=== PATIENT | female | born 1940 | race Caucasian/White ===

== ENCOUNTER 2016-12-25 06:38 | Day surgery (SDC) | payer MEDICARE, BC ==
[2016-12-22 15:49] VITALS: BMI 30.3
[~2016-12-25 06:38] MED LIST: LACTATED RINGERS 1,000 ML IV SCH
[2016-12-25 07:16] VITALS: TEMP 96.9
[2016-12-25] MEDS ORDERED: LACTATED RINGERS 1,000 ML IV ONE (07:23)
[2016-12-25 07:26] LABS: Glucose,Whole Blood 152 mg/dL (75-99)
[2016-12-25] MEDS ORDERED: LEVALBUTEROL NEB 1.25 MG/3 ML AMP INHALATION STA (07:38)
[2016-12-25] MEDS ORDERED: PROPOFOL 10 MG/ML 20 ML VIAL IV ONE (08:17)
--- NOTE | 2016-12-25 08:47 | P.PCN ---
Date of Procedure: 12/25/16 Procedure(s) Performed: Brief history: Patient is a pleasant 76-year-old white female, scheduled for an elective upper endoscopy as well as colonoscopy as a part of evaluation of iron deficiency anemia. She also complains of intermittent diarrhea and fecal incontinence. Procedure performed: Esophagogastroduodenoscopy with biopsy Colonoscopy with snare polypectomy Preoperative diagnosis: Iron deficiency anemia and change in bowel habits Anesthesia: MAC Procedure: After informed consent was obtained from the patient was brought into the endoscopy unit and IV sedation was administered by anesthesia under continuous monitoring. Initially upper endoscopy was done. The Olympus GF 160 video endoscope was inserted inserted into the mouth and esophagus intubated without any difficulty and was gradually advanced into the stomach and duodenum and carefully examined. The bulb and second part of the duodenum appeared normal. The scope was then withdrawn into the stomach adequately insufflated with air and upon careful examination the antrum and body, had diffuse gastritis with superficial linear erosions and biopsies were done from this area. The cardia and fundus appeared normal. The scope was then withdrawn into the esophagus. The GE junction was located at 40 cm to the incisors. It appeared regular with no erythema erosions or ulcerations. Rest of the esophagus appeared normal. Patient tolerated the procedure well. At this time the patient continued to remain sedation. Initial digital rectal examination was normal. Olympus CF 160 video colonoscope was then inserted into the rectum and gradually advanced to the cecum without any difficulty. Careful examination was performed as the scope was gradually being withdrawn. The prep was excellent. The cecum appeared normal. In the ascending colon there was a 5 mm, 1 cm and 2 cm polyps all of which were removed by snare polypectomy. The rest of the, ascending colon, transverse colon, descending colon, sigmoid colon and rectum appeared normal. Moderate diverticulosis seen. Retroflexion was performed in the rectum and no lesions were noted. Patient tolerated the procedure well. Impression: 1. Upper endoscopy revealed gastritis and superficial erosions in the body and antrum of the stomach status post biopsy 2. Colonoscopy revealed 5 mm, 1 cm and 2 cm ascending colon polyps status post polypectomy and sigmoid diverticulosis. Recommendations: Findings of this examination were discussed with the patient as well as her family. She was advised to follow with the biopsy results. If the biopsy shows a tubular adenoma she can have a repeat colonoscopy in 3 years. She can start on iron supplements and she was also given a prescription for Prilosec 20 mg daily and was advised to avoid NSAIDs.
[2016-12-25 09:28] VITALS: BP 114/85; PULSE 85; RESP 18
--- NOTE | 2016-12-31 08:25 | CDI ---
In order to code the diagnosises on this account correctly, I need some clarification due to a conflict. Your Procedure Note states that there were polyps found and removed from the ascending colon. The Pathology Report does not have record of ascending polyps. 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 Can you please issue an addendum stating the actual location and pathology of the polyps? If you don't understand what is needed, please contact my Plant Health Care Technician , Kimberly Ortega at [phone]. Thanks! PATIENCE Patino
--- NOTE | 2017-01-04 09:52 | CDI ---
THIS IS REQUEST 2 AND REQUIRES AN ADDENDUM In order to code the diagnoses on this account correctly, I need some clarification due to a conflict. Your Procedure Note states that there were polyps found and removed from the ascending colon. The Pathology Report does not state ascending polyps. 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 Can you please issue an addendum stating the actual location and pathology of the polyps ? If you don't understand what is needed, please contact my Park Superintendent, Kimberly Ortega at [phone]. Thanks! PATIENCE Patino
--- NOTE | 2017-01-12 09:44 | CDI ---
THIS IS A 3RD REQUEST AND REQUIRES AN ADDENDUM In order to code the diagnoses on this account correctly, I need clarification due to a documentation conflict. Your Procedure Note states polyps were removed from the ascending colon. The Path Report reflects descending polyps with path of serrated adenoma and tubular adenoma. Can you please issue an addendum stating the actual location (descending or ascending) and path of those polyps? If you don't understand what is needed from you, please contact my deployment manager, Kimberly Ortega at [phone]. Thank you. PATIENCE Patino
--- NOTE | 2017-01-20 09:38 | CDI ---
In order to code the diagnosises on this account correctly, I need some clarification due to a documentation conflict. Your Procedure Note states polyps were removed from the ascending colon. 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 Can you please issue an addendum stating the actual location ( descending OR ascending) and pathology of the polyps? Please note if the path report is incorrect in stating descending. If you don't understand what is needed, please contact my Golf Club Manager, Kimberly Ortega at [phone]. Thanks! PATIENCE Patino
== END 2016-12-25 09:39 | disposition home or self-care (01) ==
LOC: ORWHC2ENDO 06:38
PROVIDERS: ATTEND Internal Medicine Gastroenterology
DX: K29.50 Unspecified chronic gastritis without bleeding (principal); K25.9 Gastric ulcer, unspecified as acute or chronic, without hemorrhage or perforation; D12.2 Benign neoplasm of ascending colon; K57.30 Diverticulosis of large intestine without perforation or abscess without bleeding; D50.9 Iron deficiency anemia, unspecified; R19.4 Change in bowel habit; K58.0 Irritable bowel syndrome with diarrhea; R15.9 Full incontinence of feces; I10 Essential (primary) hypertension; E78.5 Hyperlipidemia, unspecified; E11.9 Type 2 diabetes mellitus without complications; K21.9 Gastro-esophageal reflux disease without esophagitis; K58.9 Irritable bowel syndrome, unspecified; Z79.84 Long term (current) use of oral hypoglycemic drugs; Z79.82 Long term (current) use of aspirin; Z79.899 Other long term (current) drug therapy
CPT/HCPCS: 94640; 88305; 88342; 45385; 43239; J2704

== ENCOUNTER 2019-06-13 08:33 | Inpatient (IN) | payer MEDICARE, BC ==
[2019-06-13] MEDS ORDERED: SODIUM CHLORIDE 0.9% 500 ML 500 ML IV STA (09:01)
[2019-06-13] MEDS ORDERED: KETOROLAC 60 MG/2 ML VIAL IVP STA (09:04)
[2019-06-13 09:38] LABS: Basophils # (A) 0.1 k/uL (0-0.2); Basophils % (A) 0 %; Eosinophils # (A) 0.2 k/uL (0-0.7); Eosinophils % (A) 2 %; HCT 35.5 % (34.0-46.0); HGB 10.6 gm/dL (11.4-16.0); Hypochromasia Slight; Lymphocytes # (A) 2.2 k/uL (1.0-4.8); Lymphocytes % (A) 16 %; MCH 24.9 pg (25.0-35.0); MCHC 29.8 g/dL (31.0-37.0); MCV 83.7 fL (80.0-100.0); Mean Platelet Volume 7.3; Monocytes # (A) 0.8 k/uL (0-1.0); Monocytes % (A) 6 %; Neutrophils # (A) 10.1 k/uL (1.3-7.7); Neutrophils % (A) 74 %; Platelet Count 469 k/uL (150-450); RBC 4.24 m/uL (3.80-5.40); RDW 14.5 % (11.5-15.5); WBC 13.6 k/uL (3.8-10.6)
[2019-06-13 09:44] LABS: INR 0.9 (<1.2); Partial Thromboplastin Time 24.9 sec (22.0-30.0); Prothrombin Time 9.9 sec (9.0-12.0)
[2019-06-13 09:47] LABS: Albumin 4.2 g/dL (3.5-5.0); Calcium 8.7 mg/dL (8.4-10.2); Magnesium 1.5 mg/dL (1.6-2.3); Potassium 4.7 mmol/L (3.5-5.1); Total Bilirubin 0.3 mg/dL (0.2-1.3); Total Protein 6.8 g/dL (6.3-8.2)
--- NOTE | 2019-06-13 09:47 | ED ---
General Adult HPI - General Chief complaint: Fall Stated complaint: FALL Time Seen by Provider: 06/13/19 08:35 Source: patient, family, RN notes reviewed Mode of arrival: wheelchair Limitations: no limitations - History of Present Illness Initial comments: This is an 79-year-old female presents emergency department because she fell twice yesterday and has fallen 4 times in the last few days. Patient states she is here because she hurt her left lower back. Patient doesn't know which side she actually fell on. Patient states she has been told she has vertigo and that that may be the reason she is falling. Patient states she does not know why she has been falling recently. Patient denies any headache patient doesn't think she hit her head. Patient denies any neck pain. Patient denies any numbness weakness. Patient denies any recent fever chills per patient denies chest pain palpitations difficulty breathing shortness of breath. Any abdominal pain patient denies nausea vomiting diarrheapatient has full range of motion of all 4 extremities. - Related Data Home Medications Medication Instructions Recorded Confirmed Cinacalcet [Sensipar] 30 mg PO DAILY 06/13/19 06/13/19 Ciprofloxacin HCl [Cipro] 500 mg PO BID 06/13/19 06/13/19 Citalopram Hydrobromide 40 mg PO DAILY 06/13/19 06/13/19 [Citalopram HBr] Lisinopril 20 mg PO DAILY 06/13/19 06/13/19 Loperamide [Imodium] 2 mg PO PC-LUNCH 06/13/19 06/13/19 Loperamide [Imodium] 4 mg PO QAM 06/13/19 06/13/19 Memantine [Namenda] 10 mg PO DAILY 06/13/19 06/13/19 Montelukast [Singulair] 10 mg PO HS 06/13/19 06/13/19 Omeprazole [PriLOSEC] 20 mg PO DAILY 06/13/19 06/13/19 Oxybutynin Chloride [Oxybutynin 15 mg PO DAILY 06/13/19 06/13/19 Chloride ER] Simvastatin 40 mg PO HS 06/13/19 06/13/19 Zolpidem [Ambien] 10 mg PO HS 06/13/19 06/13/19 busPIRone HCL [Buspar] 7.5 mg PO TID 06/13/19 06/13/19 glipiZIDE [Glucotrol] 10 mg PO DAILY 06/13/19 06/13/19 metFORMIN HCL [Glucophage] 1,000 mg PO BID 06/13/19 06/13/19 Allergies Allergy/AdvReac Type Severity Reaction Status Date / Time No Known Allergies Allergy Verified 06/13/19 10:03 Review of Systems ROS Statement: Those systems with pertinent positive or pertinent negative responses have been documented in the HPI. ROS Other: All systems not noted in ROS Statement are negative. Past Medical History Past Medical History: COPD, Diabetes Mellitus, Hypertension Additional Past Medical History / Comment(s): IBS, ANEMIA History of Any Multi-Drug Resistant Organisms: None Reported Past Surgical History: Hysterectomy Past Anesthesia/Blood Transfusion Reactions: Unable to Obtain Additional Past Anesthesia/Blood Transfusion Reaction / Comment(s): SON UNSURE Smoking Status: Current every day smoker Past Alcohol Use History: None Reported Past Drug Use History: None Reported - Past Family History Mother Family Medical History: Unable to Obtain General Exam - General Exam Comments Initial Comments: GENERAL: Patient is well-developed and well-nourished. Patient is nontoxic and well- hydrated and is in moderate distress. ENT: Neck is soft and supple. No significant lymphadenopathy is noted. Oropharynx is clear. Moist mucous membranes. Neck has full range of motion without eliciting any pain. EYES: The sclera were anicteric and conjunctiva were pink and moist. Extraocular movements were intact and pupils were equal round and reactive to light. Eyelids were unremarkable. PULMONARY: Unlabored respirations. Good breath sounds bilaterally. No audible rales rhonchi or wheezing was noted. CARDIOVASCULAR: There is a regular rate and rhythm without any murmurs gallops or rubs. ABDOMEN: Soft and nontender with normal bowel sounds. SKIN: Skin is clear with no lesions or rashes and otherwise unremarkable. NEUROLOGIC: Patient is alert and oriented x3. Cranial nerves II through XII are grossly intact. Motor and sensory are also intact. Normal speech, volume and content. Symmetrical smile. MUSCULOSKELETAL: Normal extremities with adequate strength and full range of motion. Patient has left lower back pain. Patient has full range of motion of both hips and knees. LYMPHATICS: No significant lymphadenopathy is noted PSYCHIATRIC: Normal psychiatric evaluation. Limitations: no limitations Course Vital Signs 06/13/19 08:36 Temperature 98.8 F Pulse Rate 95 Respiratory 18 Rate Blood Pressure 120/56 O2 Sat by Pulse 97 Oximetry Medical Decision Making - Medical Decision Making EKG shows normal sinus rhythm at 93 bpm IA interval 170 QRS is 110 QT interval 390 QTC is 484. Patient's EKG shows no ST segment elevation or depression. CT of the brain shows no acute abnormality. Chest x-ray shows no acute abnormality. Patient was still unsteady on her feet so patient was admitted the hospital spoke with Dr. Goetz agreed to admit the patient admitted the patient wrote admitting orders. - Lab Data Result diagrams: 06/13/19 09:21 06/13/19 09:21 Lab Results 06/13/19 06/13/19 06/13/19 Range/Units 09:21 09:21 09:21 WBC 13.6 H (3.8-10.6) k/uL RBC 4.24 (3.80-5.40) m/uL Hgb 10.6 L (11.4-16.0) gm/dL Hct 35.5 (34.0-46.0) % MCV 83.7 (80.0-100.0) fL MCH 24.9 L (25.0-35.0) pg MCHC 29.8 L (31.0-37.0) g/dL RDW 14.5 (11.5-15.5) % Plt Count 469 H (150-450) k/uL Neutrophils % 74 % Lymphocytes % 16 % Monocytes % 6 % Eosinophils % 2 % Basophils % 0 % Neutrophils # 10.1 H (1.3-7.7) k/uL Lymphocytes # 2.2 (1.0-4.8) k/uL Monocytes # 0.8 (0-1.0) k/uL Eosinophils # 0.2 (0-0.7) k/uL Basophils # 0.1 (0-0.2) k/uL Hypochromasia Slight PT (9.0-12.0) sec INR (<1.2) APTT (22.0-30.0) sec Sodium 137 (137-145) mmol/L Potassium 4.7 (3.5-5.1) mmol/L Chloride 103 (98-107) mmol/L Carbon Dioxide 25 (22-30) mmol/L Anion Gap 9 mmol/L BUN 30 H (7-17) mg/dL Creatinine 1.06 H (0.52-1.04) mg/dL Est GFR (CKD-EPI)AfAm 58 (>60 ml/min/1.73 sqM) Est GFR (CKD-EPI)NonAf 50 (>60 ml/min/1.73 sqM) Glucose 193 H (74-99) mg/dL Lactic Ac Sepsis Rflx Plasma Lactic Acid [place] 2.1 H* (0.7-2.0) mmol/L Calcium 8.7 (8.4-10.2) mg/dL Magnesium 1.5 L (1.6-2.3) mg/dL Total Bilirubin 0.3 (0.2-1.3) mg/dL AST 16 (14-36) U/L ALT 14 (9-52) U/L Alkaline Phosphatase 114 (38-126) U/L Troponin I (0.000-0.034) ng/mL Total Protein 6.8 (6.3-8.2) g/dL Albumin 4.2 (3.5-5.0) g/dL Urine Color Urine Appearance (Clear) Urine pH (5.0-8.0) Ur Specific [place] (1.001-1.035) Urine Protein (Negative) Urine Glucose (UA) (Negative) Urine Ketones (Negative) Urine Blood (Negative) Urine Nitrite (Negative) Urine Bilirubin (Negative) Urine Urobilinogen (<2.0) mg/dL Ur Leukocyte Esterase (Negative) Urine RBC (0-5) /hpf Urine WBC (0-5) /hpf Hyaline Casts (0-2) /lpf Urine Mucus (None) /hpf 06/13/19 06/13/19 06/13/19 Range/Units 09:21 09:21 09:30 WBC (3.8-10.6) k/uL RBC (3.80-5.40) m/uL Hgb (11.4-16.0) gm/dL Hct (34.0-46.0) % MCV (80.0-100.0) fL MCH (25.0-35.0) pg MCHC (31.0-37.0) g/dL RDW (11.5-15.5) % Plt Count (150-450) k/uL Neutrophils % % Lymphocytes % % Monocytes % % Eosinophils % % Basophils % % Neutrophils # (1.3-7.7) k/uL Lymphocytes # (1.0-4.8) k/uL Monocytes # (0-1.0) k/uL Eosinophils # (0-0.7) k/uL Basophils # (0-0.2) k/uL Hypochromasia PT 9.9 (9.0-12.0) sec INR 0.9 (<1.2) APTT 24.9 (22.0-30.0) sec Sodium (137-145) mmol/L Potassium (3.5-5.1) mmol/L Chloride (98-107) mmol/L Carbon Dioxide (22-30) mmol/L Anion Gap mmol/L BUN (7-17) mg/dL Creatinine (0.52-1.04) mg/dL Est GFR (CKD-EPI)AfAm (>60 ml/min/1.73 sqM) Est GFR (CKD-EPI)NonAf (>60 ml/min/1.73 sqM) Glucose (74-99) mg/dL Lactic Ac Sepsis Rflx Plasma Lactic Acid [place] (0.7-2.0) mmol/L Calcium (8.4-10.2) mg/dL Magnesium (1.6-2.3) mg/dL Total Bilirubin (0.2-1.3) mg/dL AST (14-36) U/L ALT (9-52) U/L Alkaline Phosphatase (38-126) U/L Troponin I <0.012 (0.000-0.034) ng/mL Total Protein (6.3-8.2) g/dL Albumin (3.5-5.0) g/dL Urine Color Yellow Urine Appearance Clear (Clear) Urine pH 5.0 (5.0-8.0) Ur Specific [place] 1.022 (1.001-1.035) Urine Protein 1+ H (Negative) Urine Glucose (UA) 1+ H (Negative) Urine Ketones Negative (Negative) Urine Blood Trace H (Negative) Urine Nitrite Negative (Negative) Urine Bilirubin Negative (Negative) Urine Urobilinogen 2.0 (<2.0) mg/dL Ur Leukocyte Esterase Negative (Negative) Urine RBC 8 H (0-5) /hpf Urine WBC 2 (0-5) /hpf Hyaline Casts 13 H (0-2) /lpf Urine Mucus Occasional H (None) /hpf 06/13/19 Range/Units 10:01 WBC (3.8-10.6) k/uL RBC (3.80-5.40) m/uL Hgb (11.4-16.0) gm/dL Hct (34.0-46.0) % MCV (80.0-100.0) fL MCH (25.0-35.0) pg MCHC (31.0-37.0) g/dL RDW (11.5-15.5) % Plt Count (150-450) k/uL Neutrophils % % Lymphocytes % % Monocytes % % Eosinophils % % Basophils % % Neutrophils # (1.3-7.7) k/uL Lymphocytes # (1.0-4.8) k/uL Monocytes # (0-1.0) k/uL Eosinophils # (0-0.7) k/uL Basophils # (0-0.2) k/uL Hypochromasia PT (9.0-12.0) sec INR (<1.2) APTT (22.0-30.0) sec Sodium (137-145) mmol/L Potassium (3.5-5.1) mmol/L Chloride (98-107) mmol/L Carbon Dioxide (22-30) mmol/L Anion Gap mmol/L BUN (7-17) mg/dL Creatinine (0.52-1.04) mg/dL Est GFR (CKD-EPI)AfAm (>60 ml/min/1.73 sqM) Est GFR (CKD-EPI)NonAf (>60 ml/min/1.73 sqM) Glucose (74-99) mg/dL Lactic Ac Sepsis Rflx Y Plasma Lactic Acid [place] (0.7-2.0) mmol/L Calcium (8.4-10.2) mg/dL Magnesium (1.6-2.3) mg/dL Total Bilirubin (0.2-1.3) mg/dL AST (14-36) U/L ALT (9-52) U/L Alkaline Phosphatase (38-126) U/L Troponin I (0.000-0.034) ng/mL Total Protein (6.3-8.2) g/dL Albumin (3.5-5.0) g/dL Urine Color Urine Appearance (Clear) Urine pH (5.0-8.0) Ur Specific [place] (1.001-1.035) Urine Protein (Negative) Urine Glucose (UA) (Negative) Urine Ketones (Negative) Urine Blood (Negative) Urine Nitrite (Negative) Urine Bilirubin (Negative) Urine Urobilinogen (<2.0) mg/dL Ur Leukocyte Esterase (Negative) Urine RBC (0-5) /hpf Urine WBC (0-5) /hpf Hyaline Casts (0-2) /lpf Urine Mucus (None) /hpf Disposition Clinical Impression: Rib contusion, Multiple falls Disposition: ADMITTED IP TO THIS HOSP Referrals: Odalys Ordaz DO [Primary Care Provider] - 1-2 days Time of Disposition: 13:56
[2019-06-13 10:06] LABS: Appearance,Urine Clear (Clear); Bilirubin,Urine Negative (Negative); Blood,Urine Trace (Negative); Color,Urine Yellow; Glucose,Urine (UA) 1+ (Negative); Hyaline Casts,Urine 13 /lpf (0-2); Ketones,Urine Negative (Negative); Leukocyte Esterase,Urine Negative (Negative); Mucus,Urine Occasional /hpf; Nitrite,Urine Negative (Negative); Protein,Urine 1+ (Negative); RBC,Urine 8 /hpf (0-5); Specific Gravity,Urine 1.022 (1.001-1.035); WBC,Urine 2 /hpf (0-5)
--- NOTE | 2019-06-13 10:10 | XR ---
EXAMINATION TYPE: XR chest 2V DATE OF EXAM: 06/13/2019 COMPARISON: NONE HISTORY: Weakness, altered mental status, difficulty breathing TECHNIQUE: Frontal and lateral views of the chest are obtained. FINDINGS: There is increased AP diameter of the chest. Thoracic spondylosis is noted. Aorta is dense. Patient is rotated. There is no focal air space opacity, pleural effusion, or pneumothorax seen. Th e cardiac silhouette size is within normal limits. Possible coronary artery vascular calcifications. The osseous structures are intact. Arthropathy noted at the acromioclavicular joints. Question small sclerotic focal density within the proximal metaphysis of the right humerus, incompletely visualized . Possible overlying artifacts right shoulder. IMPRESSION: No acute cardiopulmonary process. Additional nonspecific findings described above.
--- NOTE | 2019-06-13 12:41 | CT ---
EXAMINATION TYPE: CT brain wo con DATE OF EXAM: 06/13/2019 COMPARISON: None HISTORY: 79-year-old female with fall and pain TECHNIQUE: Examination was done in axial plane without intravenous contrast. Coronal and sagittal r econstructions performed. CT DLP: 1099.4 mGycm Automated exposure control for dose reduction was used. FINDINGS: There is no evidence of acute intracranial hemorrhage, acute ischemic changes, mass effect, or extra -axial fluid collection. There is no effacement of cerebral sulci or basal subarachnoid cisterns. T here is no hydrocephalus. There is no midline shift. Mckenna-white matter distinction is preserved. Mild bifrontal atrophy. Calcified extra-axial lesion seen along the anterior falx measures 9 mm. Dyst rophic dural calcification right temporal parietal region. Mild patchy periventricular white matter hypodensity likely relating to changes of chronic small vess el ischemic disease. Visualized paranasal sinuses and mastoid air cells well pneumatized. Orbits and globes are intact. IMPRESSION: 1 Mild bifrontal atrophy and changes of chronic small vessel ischemic disease. No acute intracranial abnormality seen. 2. A 9 mm calcified extra-axial lesion along the anterior falx, likely benign meningioma. Consider 6- 12 month follow-up MRI to reassess.
[2019-06-13] MEDS ORDERED: SODIUM CHLORIDE 0.9% 1,000 ML IV ONE (13:59)
[2019-06-13 17:17] LABS: Glucose,Whole Blood 177 mg/dL (75-99)
[2019-06-13] MEDS: ACETAMINOPHEN TAB 325 MG TAB PO PRN ×2 (17:22→22:57)
[2019-06-13] MEDS: ZOLPIDEM 5 MG TAB PO SCH (20:17)
[2019-06-13] MEDS: metFORMIN 500 MG TAB PO SCH (20:17)
[2019-06-13] MEDS: MONTELUKAST 10 MG TAB PO SCH (20:17)
[2019-06-13] MEDS: busPIRone HCl 5 MG TAB PO SCH (20:17)
[2019-06-13 21:28] LABS: Glucose,Whole Blood 126 mg/dL (75-99)
[2019-06-14] MEDS: OXYBUTYNIN 15 MG TAB.ER.24 PO SCH (06:48)
[2019-06-14] MEDS: ACETAMINOPHEN TAB 325 MG TAB PO PRN ×3 (06:48→20:56)
[2019-06-14] MEDS: LOPERAMIDE 2 MG CAP PO SCH ×2 (06:50→13:14)
[2019-06-14] MEDS: glipiZIDE 10 MG TAB PO SCH (06:50)
[2019-06-14] MEDS: CITALOPRAM HYDROBROMIDE 20 MG TAB PO SCH (06:50)
[2019-06-14] MEDS: MEMANTINE 10 MG TAB PO SCH (06:50)
[2019-06-14] MEDS: PANTOPRAZOLE 40 MG TABLET PO SCH (06:50)
[2019-06-14] MEDS: LISINOPRIL 20 MG TAB PO SCH (06:51)
[2019-06-14] MEDS: metFORMIN 500 MG TAB PO SCH ×2 (06:51→21:14)
[2019-06-14] MEDS: busPIRone HCl 5 MG TAB PO SCH ×3 (06:54→22:34)
[2019-06-14 07:11] LABS: Glucose,Whole Blood 113 mg/dL (75-99)
[2019-06-14] MEDS: CINACALCET 30 MG TAB PO SCH (12:07)
[2019-06-14 12:26] LABS: Glucose,Whole Blood 158 mg/dL (75-99)
--- NOTE | 2019-06-14 16:14 | P.HPIM ---
History of Present Illness H&P Date: 06/14/19 Chief Complaint: Falls History of presenting complaint: This is a very pleasant 79-year-old patient who follows with visiting physicians Dr. Malik. Chronic stable medical conditions include COPD, dementia, diabetes mellitus type 2, GERD, hypertension, hyperlipidemia, chronic kidney disease. Patient has known chronic vertigo. Patient is here with her daughter and son-in-law. Patient does use a walker. Often gets dizzy on standing up. She's had recent about 4 falls more so twice in the last couple of days. Normally when she gets up she gets dizzy and sometimes she falls down. Patient also gets intermittent diarrhea that sometimes she cannot control. This is been going on for some time. Appetite is good otherwise. Patient is continued to smoke. Patient's cannot cough and wheezing. As per herself has a walker. No chest pain no palpitation. No seizure like activity or symptoms. Does not pass out. Patient also found to be orthostatic. Review of systems: GEN.: Tired EYES: None HEENT: None NECK: None RESPIRATORY: Increasing short of breath CARDIOVASCULAR: None GASTROINTESTINAL: Intermittent diarrhea GENITOURINARY: None MUSCULOSKELETAL: Joint pains LYMPHATICS: None HEMATOLOGICAL: None PSYCHIATRY: Forgetful NEUROLOGICAL: Decreased sensation distally Social history: Smoking less than a pack a day for over 60's. No alcohol. Lives in an apartmen t. Has a walker. Does her own cooking. Daughter checks on her. Family history: Mother had polio and musculoskeletal disorder. Physical examination: VITAL SIGNS: 98.8, 95, 18, 120/56, 97% room air. Orthostatics positive GENERAL: Average built, sitting up, comfortable. EYES: Pupils equal. Conjunctiva normal. HEENT: External appearance of nose and ears normal, oral cavity grossly normal. NECK: JVD not raised; masses not palpable. HEART: First and second heart sounds are normal; no edema. LUNGS: Respiratory rate increased, diminished breath sounds prolonged expiration and wheezing. ABDOMEN: Soft, nontender, liver spleen not palpable, no masses palpable. PSYCH: [Awake able to answer questions l. NEUROLOGICAL: Cranial nerves grossly intact; no facial asymmetry, power and sensation grossly intact. LYMPHATICS: No lymph nodes palpable in the axilla and neck MUSCULOSKELETAL: Evidence of OA especially in the hands INVESTIGATIONS, reviewed in the clinical context: White count 13.6 hemoglobin 10.6 platelets 469 potassium 4.7 (30 creatinine 1.06 Lactic acid 2.1 magnesium 1.5 EKG tracing personally reviewed by me-right bundle-branch block Chest [id number] and some cardiomegaly and some chronic changes. Evidence of osteoarthritis of the spine Assessment: -Recurrent falls from orthostasis most likely from autonomic dysfunction -Autonomic dysfunction from underlying diabetes which is causing orthostatics, intermittent diarrhea, and patient also got peripheral neuropathy -Moderate COPD exacerbation and a current smoker -Chronic nicotine dependence patient cigarette smoker -GERD -Hyperlipidemia -Essential hypertension -Chronic kidney disease stage III from nephrosclerosis -Chronic vertigo -Irritable bowel syndrome -Diabetes mellitus type 2 on oral hypoglycemic -Essential hypertension -GERD -Chronic gait dysfunction uses a walker Plan: Was give patient's ADELA stockings on both the legs start the patient on Florinef 0.05 mg twice a day. Did have a lengthy talk with the patient and the family about to do things slowly including getting up slowly. We'll start the patient onbronchodilators and give a burst of steroids. Patient to be in a more supervised setting this was discussed at length with the family again. They understand the same. Home medications resumed. Accu-Cheks will be followed. Lovenox for DVT prophylaxis. Smoke cessation counseling: This was done with the patient. Nicotine patch is being given. More than 3 minutes was spent for this Past Medical History Past Medical History: COPD, Dementia, Diabetes Mellitus, GERD/Reflux, Hyperlipidemia, Hypertension, Renal Disease Additional Past Medical History / Comment(s): NIDDM type II, chronic vertigo, CKD, anemia, IBS History of Any Multi-Drug Resistant Organisms: None Reported Past Surgical History: Hysterectomy Additional Past Surgical History / Comment(s): EGD, colonoscopies/benign polypectomies. Past Anesthesia/Blood Transfusion Reactions: No Reported Reaction Additional Past Anesthesia/Blood Transfusion Reaction / Comment(s): SON UNSURE Smoking Status: Current every day smoker - Past Family History Mother Family Medical History: Musculoskeletal Disorder, Neurologic Disorder Additional Family Medical History / Comment(s): Mother had polio Father Family Medical History: Diabetes Mellitus Additional Family Medical History / Comment(s): Mental illness later in his life. Medications and Allergies Home Medications Medication Instructions Recorded Confirmed Type Cinacalcet [Sensipar] 30 mg PO DAILY 06/13/19 06/13/19 History Ciprofloxacin HCl [Cipro] 500 mg PO BID 06/13/19 06/13/19 History Citalopram Hydrobromide 40 mg PO DAILY 06/13/19 06/13/19 History [Citalopram HBr] Lisinopril 20 mg PO DAILY 06/13/19 06/13/19 History Loperamide [Imodium] 2 mg PO PC-LUNCH 06/13/19 06/13/19 History Loperamide [Imodium] 4 mg PO QAM 06/13/19 06/13/19 History Memantine [Namenda] 10 mg PO DAILY 06/13/19 06/13/19 History Montelukast [Singulair] 10 mg PO HS 06/13/19 06/13/19 History Omeprazole [PriLOSEC] 20 mg PO DAILY 06/13/19 06/13/19 History Oxybutynin Chloride [Oxybutynin 15 mg PO DAILY 06/13/19 06/13/19 History Chloride ER] Simvastatin 40 mg PO HS 06/13/19 06/13/19 History Zolpidem [Ambien] 10 mg PO HS 06/13/19 06/13/19 History busPIRone HCL [Buspar] 7.5 mg PO TID 06/13/19 06/13/19 History glipiZIDE [Glucotrol] 10 mg PO DAILY 06/13/19 06/13/19 History metFORMIN HCL [Glucophage] 1,000 mg PO BID 06/13/19 06/13/19 History Allergies Allergy/AdvReac Type Severity Reaction Status Date / Time No Known Allergies Allergy Verified 06/13/19 10:03 Physical Exam Vitals: Vital Signs Temp Pulse Pulse Resp BP BP BP 06/14/19 07:55 98.4 F 83 18 138/74 06/13/19 20:41 98.0 F 101 H 20 152/61 162/67 06/13/19 15:00 98.1 F 68 17 06/13/19 14:30 137/70 06/13/19 14:09 91 06/13/19 14:08 85 06/13/19 14:07 83 06/13/19 14:00 130/51 06/13/19 13:30 115/65 06/13/19 13:00 131/53 06/13/19 12:30 134/59 06/13/19 12:00 124/82 06/13/19 11:30 124/58 06/13/19 11:00 122/58 06/13/19 10:30 116/66 BP BP Pulse Ox 06/14/19 07:55 93 L 06/13/19 20:41 181/79 89 L 06/13/19 15:00 150/81 98 06/13/19 14:30 06/13/19 14:09 137/70 06/13/19 14:08 134/61 06/13/19 14:07 130/57 06/13/19 14:00 99 06/13/19 13:30 06/13/19 13:00 06/13/19 12:30 06/13/19 12:00 06/13/19 11:30 06/13/19 11:00 06/13/19 10:30 Intake and Output 06/13/19 06/14/19 06/14/19 22:59 06:59 14:59 Intake Total 240 100 Balance 240 100 Intake: Oral 240 100 Other: Voiding Method Toilet # Voids 1 3 Results CBC & Chem 7: 06/13/19 09:21 06/13/19 09:21 Labs: Abnormal Lab Results - Last 24 Hours (Table) 06/13/19 06/13/19 06/14/19 Range/Units 17:15 21:26 07:00 POC Glucose (mg/dL) 177 H 126 H 113 H (75-99) mg/dL Thrombosis Risk Factor Assmnt - Choose All That Apply Any of the Below Risk Factors Present?: Yes Each Factor Represents 1 point: Abnormal pulmonary function (COPD), Obesity (BMI >25) Other Risk Factors: Yes Each Risk Factor Represents 3 Points: Age 75 years or older Other congenital or acquired thrombophilia - If yes, enter type in comment: No Thrombosis Risk Factor Assessment Total Risk Factor Score: 5 Thrombosis Risk Factor Assessment Level: High Risk
[2019-06-14] MEDS: BUDESONIDE 1 MG/2 ML NEBU INHALATION SCH (16:41)
[2019-06-14] MEDS: IPRATROPIUM-ALBUTEROL 3 ML NEB INHALATION SCH ×3 (16:42→23:18)
[2019-06-14] MEDS: NICOTINE 21MG/24HR PATCH TRANSDERM SCH (17:04)
[2019-06-14] MEDS: methylPREDNISolone SOD SUCCI 40 MG/ML 1 ML VIAL IV SCH (17:04)
[2019-06-14] MEDS: ENOXAPARIN 40 MG/0.4 ML SYRINGE SQ SCH (17:04)
[2019-06-14 17:07] LABS: Glucose,Whole Blood 78 mg/dL (75-99)
[2019-06-14] MEDS: INSULIN ASPART (NovoLOG) 100 UNIT/ML VIAL SQ SCH ×2 (17:07→21:20)
[2019-06-14 20:12] LABS: Glucose,Whole Blood 382 mg/dL (75-99)
[2019-06-14] MEDS: MONTELUKAST 10 MG TAB PO SCH (21:14)
[2019-06-14] MEDS: ZOLPIDEM 5 MG TAB PO SCH (21:14)
[2019-06-14] MEDS: FLUDROCORTISONE 0.1 MG TAB PO SCH (22:19)
[2019-06-15] MEDS: methylPREDNISolone SOD SUCCI 40 MG/ML 1 ML VIAL IV SCH ×4 (00:07→23:54)
[2019-06-15] MEDS: IPRATROPIUM-ALBUTEROL 3 ML NEB INHALATION SCH ×6 (03:43→23:36)
[2019-06-15 07:12] LABS: Glucose,Whole Blood 296 mg/dL (75-99)
[2019-06-15] MEDS: BUDESONIDE 1 MG/2 ML NEBU INHALATION SCH ×2 (07:16→20:03)
[2019-06-15] MEDS: MEMANTINE 10 MG TAB PO SCH (09:45)
[2019-06-15] MEDS: NICOTINE 21MG/24HR PATCH TRANSDERM SCH (09:45)
[2019-06-15] MEDS: PANTOPRAZOLE 40 MG TABLET PO SCH (09:45)
[2019-06-15] MEDS: busPIRone HCl 5 MG TAB PO SCH ×3 (09:45→23:07)
[2019-06-15] MEDS: CITALOPRAM HYDROBROMIDE 20 MG TAB PO SCH (09:45)
[2019-06-15] MEDS: LISINOPRIL 20 MG TAB PO SCH (09:45)
[2019-06-15] MEDS: INSULIN ASPART (NovoLOG) 100 UNIT/ML VIAL SQ SCH ×4 (09:45→21:21)
[2019-06-15] MEDS: glipiZIDE 10 MG TAB PO SCH (09:45)
[2019-06-15] MEDS: OXYBUTYNIN 15 MG TAB.ER.24 PO SCH (09:46)
[2019-06-15] MEDS: CINACALCET 30 MG TAB PO SCH (09:46)
[2019-06-15] MEDS: FLUDROCORTISONE 0.1 MG TAB PO SCH ×2 (09:46→21:23)
[2019-06-15] MEDS: metFORMIN 500 MG TAB PO SCH ×2 (09:46→21:23)
[2019-06-15] MEDS: ENOXAPARIN 40 MG/0.4 ML SYRINGE SQ SCH (09:46)
[2019-06-15] MEDS: LOPERAMIDE 2 MG CAP PO SCH ×2 (09:47→11:25)
[2019-06-15] MEDS: ACETAMINOPHEN TAB 325 MG TAB PO PRN ×2 (09:53→17:49)
[2019-06-15 11:56] LABS: Glucose,Whole Blood 242 mg/dL (75-99)
[2019-06-15 17:21] LABS: Glucose,Whole Blood 209 mg/dL (75-99)
[2019-06-15] MEDS ORDERED: LOPERAMIDE 2 MG CAP PO PRN ×2 (17:51)
[2019-06-15 20:14] LABS: Glucose,Whole Blood 328 mg/dL (75-99)
[2019-06-15] MEDS: MONTELUKAST 10 MG TAB PO SCH (21:23)
[2019-06-15] MEDS: ZOLPIDEM 5 MG TAB PO SCH (21:23)
--- NOTE | 2019-06-16 00:07 | P.PN ---
Progress Note - Text Progress Note Date: 06/15/19 History of presenting complaint: This is a very pleasant 79-year-old patient who follows with visiting physicians Dr. Malik. Chronic stable medical conditions include COPD, dementia, diabetes mellitus type 2, GERD, hypertension, hyperlipidemia, chronic kidney disease. Patient has known chronic vertigo. Patient is here with her daughter and son-in-law. Patient does use a walker. Often gets dizzy on standing up. She's had recent about 4 falls more so twice in the last couple of days. Normally when she gets up she gets dizzy and sometimes she falls down. Patient also gets intermittent diarrhea that sometimes she cannot control. This is been going on for some time. Appetite is good otherwise. Patient is continued to smoke. Patient's has a cough and wheezing. As per herself has a walker. No chest pain no palpitation. No seizure like activity or symptoms. Does not pass out. Patient also found to be orthostatic. Admitted with orthostatic hypotension felt to be from autonomic dysfunction. COPD exacerbation. Today-feeling better. Was started on Florinef. Awaiting stockings. Nurse reminded. Did walk in the hallway. Eating better. Breathing a bit better. Review of systems: Was done for constitutional, cardiovascular, GI, pulmonary. relevant finding as above Active Medications Acetaminophen (Tylenol Tab) 650 mg PO Q6HR PRN PRN Reason: Fever and/ or Pain Last Admin: 06/15/19 17:49 Dose: 650 mg Documented by: Albuterol/Ipratropium (Duoneb 0.5 Mg-3 Mg/3 Ml Soln) 3 ml INHALATION RT-Q4H [facility] Last Admin: 06/15/19 23:36 Dose: Not Given Documented by: Budesonide (Pulmicort) 1 mg INHALATION RT-BID [facility] Last Admin: 06/15/19 20:03 Dose: 1 mg Documented by: Buspirone HCl (Buspar) 7.5 mg PO TID [facility] Last Admin: 06/15/19 23:07 Dose: 7.5 mg Documented by: Cinacalcet (Sensipar) 30 mg PO DAILY [facility] Last Admin: 06/15/19 09:46 Dose: 30 mg Documented by: Citalopram Hydrobromide (Celexa) 40 mg PO DAILY [facility] Last Admin: 06/15/19 09:45 Dose: 40 mg Documented by: Enoxaparin Sodium (Lovenox) 40 mg SQ DAILY [facility] Last Admin: 06/15/19 09:46 Dose: 40 mg Documented by: Fludrocortisone Acetate (Florinef) 0.05 mg PO BID [facility] Last Admin: 06/15/19 21:23 Dose: 0.05 mg Documented by: Glipizide (Glucotrol) 10 mg PO [facility] Last Admin: 06/15/19 09:45 Dose: 10 mg Documented by: Insulin Aspart (Novolog) 0 unit SQ [facility]; Protocol Last Admin: 06/15/19 21:21 Dose: 7 unit Documented by: Lisinopril (Zestril) 20 mg PO DAILY [facility] Last Admin: 06/15/19 09:45 Dose: 20 mg Documented by: Loperamide HCl (Imodium) 2 mg PO PC-LUNCH PRN PRN Reason: Constipation Loperamide HCl (Imodium) 4 mg PO QAM PRN PRN Reason: Constipation Memantine (Namenda) 10 mg PO DAILY [facility] Last Admin: 06/15/19 09:45 Dose: 10 mg Documented by: Metformin HCl (Glucophage) 1,000 mg PO BID [facility] Last Admin: 06/15/19 21:23 Dose: 1,000 mg Documented by: Methylprednisolone Sodium Succinate (Solu-Medrol) 40 mg IV Q8HR [facility] Last Admin: 06/15/19 23:54 Dose: 40 mg Documented by: Montelukast Sodium (Singulair) 10 mg PO [facility] Last Admin: 06/15/19 21:23 Dose: 10 mg Documented by: Nicotine (Habitrol 21mg/24hr Patch) 1 patch TRANSDERM DAILY [facility] Last Admin: 06/15/19 09:45 Dose: 1 patch Documented by: Oxybutynin Chloride (Ditropan Xl) 15 mg PO DAILY [facility] Last Admin: 06/15/19 09:46 Dose: 15 mg Documented by: Pantoprazole Sodium (Protonix) 40 mg PO [facility] Last Admin: 06/15/19 09:45 Dose: 40 mg Documented by: Zolpidem Tartrate (Ambien) 2.5 mg PO [facility] Last Admin: 06/15/19 21:23 Dose: 2.5 mg Documented by: Physical examination: VITAL SIGNS: e 98, 105, 20, 1 73 x 69, GENERAL: Sitting up in a chair, breathing a shade better. EYES: Pupils equal. Conjunctiva normal. HEENT: External appearance of nose and ears normal, oral cavity grossly normal. NECK: JVD not raised; masses not palpable. HEART: First and second heart sounds are normal; no edema. LUNGS: Respiratory rate increased, diminished breath sounds prolonged expiration and wheezing. ABDOMEN: Soft, nontender, liver spleen not palpable, no masses palpable. PSYCH: [Awake able to answer questions l. MUSCULOSKELETAL: Evidence of OA especially in the hands INVESTIGATIONS, reviewed in the clinical context: White count 13.6 hemoglobin 10.6 platelets 469 potassium 4.7 (30 creatinine 1.06 Lactic acid 2.1 magnesium 1.5 EKG tracing personally reviewed by me-right bundle-branch block Chest [id number] and some cardiomegaly and some chronic changes. Evidence of osteoarthritis of the spine Assessment: -Recurrent falls from orthostasis most likely from autonomic dysfunction -Autonomic dysfunction from underlying diabetes which is causing orthostatics, intermittent diarrhea, and patient also got peripheral neuropathy -Acute Moderate COPD exacerbation and a current smoker -Chronic nicotine dependence patient cigarette smoker -GERD -Hyperlipidemia -Essential hypertension -Chronic kidney disease stage III from nephrosclerosis -Chronic vertigo -Irritable bowel syndrome -Diabetes mellitus type 2 on oral hypoglycemic -Essential hypertension -GERD -Chronic gait dysfunction uses a walker Plan: Nurse reminded to give the patient ADELA stockings. We will give another 24 hours of IV Solu-Medrol. Bronchodilators to continue. Care was discussed with the patient. Feeling better. Hopefully can be discharged by tomorrow.
[2019-06-16] MEDS: IPRATROPIUM-ALBUTEROL 3 ML NEB INHALATION SCH ×6 (03:18→23:27)
[2019-06-16 07:00] LABS: Glucose,Whole Blood 321 mg/dL (75-99)
[2019-06-16] MEDS: BUDESONIDE 1 MG/2 ML NEBU INHALATION SCH ×2 (07:10→19:18)
[2019-06-16] MEDS: busPIRone HCl 5 MG TAB PO SCH ×3 (07:27→21:13)
[2019-06-16] MEDS: metFORMIN 500 MG TAB PO SCH ×2 (07:28→21:13)
[2019-06-16] MEDS: methylPREDNISolone SOD SUCCI 40 MG/ML 1 ML VIAL IV SCH (07:30)
[2019-06-16] MEDS: ENOXAPARIN 40 MG/0.4 ML SYRINGE SQ SCH (07:30)
[2019-06-16] MEDS: glipiZIDE 10 MG TAB PO SCH (07:30)
[2019-06-16] MEDS: MEMANTINE 10 MG TAB PO SCH (07:30)
[2019-06-16] MEDS: PANTOPRAZOLE 40 MG TABLET PO SCH (07:30)
[2019-06-16] MEDS: CITALOPRAM HYDROBROMIDE 20 MG TAB PO SCH (07:30)
[2019-06-16] MEDS: NICOTINE 21MG/24HR PATCH TRANSDERM SCH (07:31)
[2019-06-16] MEDS: FLUDROCORTISONE 0.1 MG TAB PO SCH ×2 (07:34→22:15)
[2019-06-16] MEDS: INSULIN ASPART (NovoLOG) 100 UNIT/ML VIAL SQ SCH ×4 (07:34→21:25)
[2019-06-16] MEDS: CINACALCET 30 MG TAB PO SCH (07:34)
[2019-06-16] MEDS: OXYBUTYNIN 15 MG TAB.ER.24 PO SCH (07:41)
[2019-06-16] MEDS: LISINOPRIL 20 MG TAB PO SCH (07:42)
[2019-06-16 11:24] LABS: Glucose,Whole Blood 115 mg/dL (75-99)
--- NOTE | 2019-06-16 15:23 | P.DS ---
Providers Date of admission: 06/14/19 10:38 Expected date of discharge: 06/17/19 Attending physician: Lopez Goetz Primary care physician: Odalys Ordaz [facility] Course: Hospital course: This is a very pleasant 79-year-old patient who follows with visiting physicians Dr. Malik. Chronic stable medical conditions include COPD, dementia, diabetes mellitus type 2, GERD, hypertension, hyperlipidemia, chronic kidney disease. Patient has known chronic vertigo. Patient is here with her daughter and son-in-law. Patient does use a walker. Often gets dizzy on standing up. She's had recent about 4 falls more so twice in the last couple of days. Normally when she gets up she gets dizzy and sometimes she falls down. Patient also gets intermittent diarrhea that sometimes she cannot control. This is been going on for some time. Appetite is good otherwise. Patient is continued to smoke. Patient's has a cough and wheezing. As per herself has a walker. No chest pain no palpitation. No seizure like activity or symptoms. Does not pass out. Patient also found to be orthostatic. Admitted with orthostatic hypotension felt to be from autonomic dysfunction. COPD exacerbation. Patient responded well to bronchodilators, steroids. Florinef and ADELA stockings were added. Orthostatics improved. Patient doing better. Up and about in the hallway with walker. Care was discussed with the patient and family. Patient be going to inpatient rehab. Physical examination: VITAL SIGNS: 97.3, 95, 16, 155/66, 94% room air GENERAL: Sitting up in a chair, breathing better. EYES: Pupils equal. Conjunctiva normal. HEENT: External appearance of nose and ears normal, oral cavity grossly normal. NECK: JVD not raised; masses not palpable. HEART: First and second heart sounds are normal; no edema. LUNGS: Respiratory rate increased, diminished breath sounds prolonged expiration and wheezing. ABDOMEN: Soft, nontender, liver spleen not palpable, no masses palpable. PSYCH: AAO 3, motor affect normal MUSCULOSKELETAL: Evidence of OA especially in the hands INVESTIGATIONS, reviewed in the clinical context: White count 13.6 hemoglobin 10.6 platelets 469 potassium 4.7 bun 30 creatinine 1.06 Lactic acid 2.1 magnesium 1.5 EKG tracing personally reviewed by me-right bundle-branch block Chest [id number] and some cardiomegaly and some chronic changes. Evidence of osteoarthritis of the spine Discharge diagnosis: -Recurrent falls from orthostasis most likely from autonomic dysfunction -Autonomic dysfunction from underlying diabetes which is causing orthostatics, intermittent diarrhea, and patient also got peripheral neuropathy -Acute Moderate COPD exacerbation and a current smoker -Chronic nicotine dependence patient cigarette smoker -GERD -Hyperlipidemia -Essential hypertension -Chronic kidney disease stage III from nephrosclerosis -Chronic vertigo -Irritable bowel syndrome -Diabetes mellitus type 2 on oral hypoglycemic -Essential hypertension -GERD -Chronic gait dysfunction uses a walker Disposition: [facility] Patient Condition at Discharge: Stable Plan - Discharge Summary Discharge Rx Participant: No New Discharge Prescriptions: New Zolpidem [Ambien] 2.5 mg PO HS #3 tab Ipratropium-Albuterol Nebulize [Duoneb 0.5 mg-3 mg/3 ml Soln] 3 ml INHALATION QID #0 ampul.neb Fludrocortisone [Florinef] 0.05 mg PO BID tab Nicotine 21Mg/24Hr Patch [Habitrol] 1 patch TRANSDERM DAILY patch predniSONE 10 mg PO DAILY #30 tab Acetaminophen Tab [Tylenol] 650 mg PO Q6HR PRN tab PRN Reason: Fever And/ Or Pain Continue busPIRone HCL [Buspar] 7.5 mg PO TID Cinacalcet [Sensipar] 30 mg PO DAILY Citalopram Hydrobromide [Citalopram HBr] 40 mg PO DAILY glipiZIDE [Glucotrol] 10 mg PO DAILY Lisinopril 20 mg PO DAILY Loperamide [Imodium] 2 mg PO PC-LUNCH Loperamide [Imodium] 4 mg PO QAM Memantine [Namenda] 10 mg PO DAILY metFORMIN HCL [Glucophage] 1,000 mg PO BID Omeprazole [PriLOSEC] 20 mg PO DAILY Discontinued Zolpidem [Ambien] 10 mg PO HS Ciprofloxacin HCl [Cipro] 500 mg PO BID No Action Montelukast [Singulair] 10 mg PO HS Oxybutynin Chloride [Oxybutynin Chloride ER] 15 mg PO DAILY Simvastatin 40 mg PO HS Discharge Medication List Cinacalcet [Sensipar] 30 mg PO DAILY 06/13/19 [History] Citalopram Hydrobromide [Citalopram HBr] 40 mg PO DAILY 06/13/19 [History] Lisinopril 20 mg PO DAILY 06/13/19 [History] Loperamide [Imodium] 2 mg PO PC-LUNCH 06/13/19 [History] Loperamide [Imodium] 4 mg PO QAM 06/13/19 [History] Memantine [Namenda] 10 mg PO DAILY 06/13/19 [History] Montelukast [Singulair] 10 mg PO HS 06/13/19 [History] Omeprazole [PriLOSEC] 20 mg PO DAILY 06/13/19 [History] Oxybutynin Chloride [Oxybutynin Chloride ER] 15 mg PO DAILY 06/13/19 [History] Simvastatin 40 mg PO HS 06/13/19 [History] busPIRone HCL [Buspar] 7.5 mg PO TID 06/13/19 [History] glipiZIDE [Glucotrol] 10 mg PO DAILY 06/13/19 [History] metFORMIN HCL [Glucophage] 1,000 mg PO BID 06/13/19 [History] Acetaminophen Tab [Tylenol] 650 mg PO Q6HR PRN tab 06/16/19 [Rx] Fludrocortisone [Florinef] 0.05 mg PO BID tab 06/16/19 [Rx] Ipratropium-Albuterol Nebulize [Duoneb 0.5 mg-3 mg/3 ml Soln] 3 ml INHALATION QID #0 ampul.neb 06/16/19 [Rx] Nicotine 21Mg/24Hr Patch [Habitrol] 1 patch TRANSDERM DAILY patch 06/16/19 [Rx] Zolpidem [Ambien] 2.5 mg PO HS #3 tab 06/16/19 [Rx] predniSONE 10 mg PO DAILY #30 tab 06/16/19 [Rx] Follow up Appointment(s)/Referral(s): Odalys Ordaz DO [Primary Care Provider] - 1-2 days
[2019-06-16] MEDS: predniSONE 20 MG TAB PO SCH (16:40)
[2019-06-16 18:00] LABS: Glucose,Whole Blood 230 mg/dL (75-99)
[2019-06-16] MEDS: ACETAMINOPHEN TAB 325 MG TAB PO PRN (19:19)
[2019-06-16] MEDS: MONTELUKAST 10 MG TAB PO SCH (21:13)
[2019-06-16] MEDS: ZOLPIDEM 5 MG TAB PO SCH (21:14)
[2019-06-16 21:18] LABS: Glucose,Whole Blood 213 mg/dL (75-99)
[2019-06-17] MEDS: IPRATROPIUM-ALBUTEROL 3 ML NEB INHALATION SCH ×3 (05:28→11:29)
[2019-06-17 07:00] LABS: Glucose,Whole Blood 175 mg/dL (75-99)
[2019-06-17 07:15] VITALS: BP 144/66; RESP 18; TEMP 98
[2019-06-17] MEDS: BUDESONIDE 1 MG/2 ML NEBU INHALATION SCH (07:54)
[2019-06-17] MEDS: metFORMIN 500 MG TAB PO SCH (08:42)
[2019-06-17] MEDS: PANTOPRAZOLE 40 MG TABLET PO SCH (08:42)
[2019-06-17] MEDS: ENOXAPARIN 40 MG/0.4 ML SYRINGE SQ SCH (08:42)
[2019-06-17] MEDS: CITALOPRAM HYDROBROMIDE 20 MG TAB PO SCH (08:42)
[2019-06-17] MEDS: busPIRone HCl 5 MG TAB PO SCH (08:42)
[2019-06-17] MEDS: predniSONE 20 MG TAB PO SCH (08:42)
[2019-06-17] MEDS: LISINOPRIL 20 MG TAB PO SCH (08:42)
[2019-06-17] MEDS: MEMANTINE 10 MG TAB PO SCH (08:43)
[2019-06-17] MEDS: CINACALCET 30 MG TAB PO SCH (08:43)
[2019-06-17] MEDS: INSULIN ASPART (NovoLOG) 100 UNIT/ML VIAL SQ SCH ×2 (08:43→12:27)
[2019-06-17] MEDS: OXYBUTYNIN 15 MG TAB.ER.24 PO SCH (08:43)
[2019-06-17] MEDS: NICOTINE 21MG/24HR PATCH TRANSDERM SCH (08:43)
[2019-06-17] MEDS: glipiZIDE 10 MG TAB PO SCH (08:43)
[2019-06-17] MEDS: FLUDROCORTISONE 0.1 MG TAB PO SCH (08:43)
[2019-06-17 11:43] VITALS: PULSE 87
[2019-06-17 11:43] LABS: Glucose,Whole Blood 132 mg/dL (75-99)
== END 2019-06-17 14:03 | DRG 74 ==
LOC: EC 08:33 → 4MS4W 14:04 → OBSVTOIN 06-14 10:38
PROVIDERS: ADMIT Hospitalist; ATTEND Hospitalist
DX: E11.43 Type 2 diabetes mellitus with diabetic autonomic (poly)neuropathy (principal); J44.1 Chronic obstructive pulmonary disease with (acute) exacerbation; I95.1 Orthostatic hypotension; E11.22 Type 2 diabetes mellitus with diabetic chronic kidney disease; F03.90 Unspecified dementia, unspecified severity, without behavioral disturbance, psychotic disturbance, mood disturbance, and anxiety; I45.10 Unspecified right bundle-branch block; N18.3 Chronic kidney disease, stage 3 (moderate); I12.9 Hypertensive chronic kidney disease with stage 1 through stage 4 chronic kidney disease, or unspecified chronic kidney disease; E11.42 Type 2 diabetes mellitus with diabetic polyneuropathy; D64.9 Anemia, unspecified; E78.5 Hyperlipidemia, unspecified; S20.219A Contusion of unspecified front wall of thorax, initial encounter; M47.9 Spondylosis, unspecified; M54.5 Low back pain; K58.0 Irritable bowel syndrome with diarrhea; K21.9 Gastro-esophageal reflux disease without esophagitis; R26.81 Unsteadiness on feet; R29.6 Repeated falls; F17.210 Nicotine dependence, cigarettes, uncomplicated; Z71.6 Tobacco abuse counseling; Z79.84 Long term (current) use of oral hypoglycemic drugs; Z79.899 Other long term (current) drug therapy; Z90.710 Acquired absence of both cervix and uterus; W19.XXXA Unspecified fall, initial encounter; Z83.3 Family history of diabetes mellitus; Z81.8 Family history of other mental and behavioral disorders; Z82.0 Family history of epilepsy and other diseases of the nervous system
CPT/HCPCS: 36415; 70450; 71046; 80053; 81001; 83605; 83735; 84484; 85025; 85610; 85730; 93005; 94640; 96361; 96374; 99285